=== PATIENT | male | born 1945 | race American Indian/Alaskan Native ===

== ENCOUNTER 2020-01-23 22:07 | Emergency (ER) | payer MEDICARE ==
[2020-01-23 23:36] LABS: Alanine Aminotransferase 16 units/L (7-56); Albumin 3.8 g/dL (3.9-5); BUN/Creatinine Ratio 16; Blood Urea Nitrogen 21 mg/dL (9-20); Calcium 10.9 mg/dL (8.4-10.2); Hemolysis Index 12; INR 0.96 (0.87-1.13)
[2020-01-23 23:37] LABS: Partial Thromboplastin Time 26.5 Sec. (24.2-36.6)
[2020-01-23 23:43] LABS: Hematocrit 44.8 % (35.5-45.6); Mean Corpuscular HGB Conc 32 % (32-34); Mean Corpuscular Volume 87 fl (84-94); Platelet Count 187 K/mm3 (140-440); Red Blood Count 5.12 M/mm3 (3.65-5.03); Red Cell Distribution Width 15.4 % (13.2-15.2)
[2020-01-23 23:48] LABS: Hemoglobin 14.1 gm/dl (11.8-15.2); Lymphocytes % (Auto) 25.3 % (13.4-35.0)
[2020-01-23 23:49] LABS: Basophils % (Auto) 0.6 % (0.0-1.8); Eosinophils % (Auto) 1.5 % (0.0-4.3); Monocytes % (Auto) 8.9 % (0.0-7.3)
[2020-01-23 23:50] LABS: Eosinophils # (Auto) 0.1 K/mm3 (0.0-0.4); Lymphocytes # (Auto) 1.8 K/mm3 (1.2-5.4); Monocytes # (Auto) 0.6 K/mm3 (0.0-0.8)
[2020-01-24 01:34] VITALS: BP 145/70
== END 2020-01-24 01:37 | disposition other institution (70) ==
LOC: ED 22:07
DX: I61.5 Nontraumatic intracerebral hemorrhage, intraventricular (principal); R41.82 Altered mental status, unspecified; R53.1 Weakness; I10 Essential (primary) hypertension; R56.9 Unspecified convulsions; Z86.73 Personal history of transient ischemic attack (TIA), and cerebral infarction without residual deficits; Z87.442 Personal history of urinary calculi; Z98.890 Other specified postprocedural states; Z87.891 Personal history of nicotine dependence; Z79.899 Other long term (current) drug therapy
CPT/HCPCS: 36415; 70450; 71045; 80053; 82140; 82550; 84443; 84484; 85025; 85610; 85730; 93005; 96374; 99291; J0360; 80320; G0480

== ENCOUNTER 2021-09-04 21:48 | Emergency (ER) | payer MEDICARE ==
[2021-09-04] MEDS ORDERED: levETIRAcetam 1000 MG/NS 0.75% 1,000 MG/100 ML BAG IV ONE (22:23)
--- NOTE | 2021-09-04 22:29 | Emergency Department Report ---
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 Patient also had history of seizure on Keppra. Patient brought to the emergency room via EMS from home for evaluation after single episode of generalized tonic-clonic seizure witnessed by his while having dinner tonight. Patient was postictal upon arrival to the scene by EMS. Patient now is awake alert but he is not oriented to time place and person however EMS reported that his stated that this is his baseline. MD Complaint: seizure Description of Episode: loss of consciousness, tonic-clonic movement, post-event confusion Witnessed:: Yes Trauma: No Seizure History: known seizure disorder Place: home Possible Precipitating Event: none Associated Symptoms: denies other symptoms Treatments Prior to Arrival: none - Related Data Home Medications Medication Instructions Recorded Confirmed Last Taken Brimonidine 0.15% [Alphagan P 1 drops OU BID 02/25/18 02/25/18 Unknown 0.15%] Donepezil HCl 5 mg PO QPM 02/25/18 02/25/18 Unknown Previous Rx's Medication Instructions Recorded Last Taken Type Clopidogrel [Plavix] 75 mg PO QDAY #30 tablet 10/24/15 Unknown Rx Dorzolamide/Timolol(Nf) 2-0.5% 1 drops OU BID bottle 10/24/15 Unknown Rx [Cosopt (Nf)] Latanoprost 0.005% 1 drops OU QPM bottle 10/24/15 Unknown Rx Aspirin [Aspirin BABY CHEW TAB] 81 mg PO QDAY #30 tab.chew 02/28/18 Unknown Rx AtorvaSTATin [Lipitor] 40 mg PO QHS #30 tablet 02/28/18 Unknown Rx Allergies Allergy/AdvReac Type Severity Reaction Status Date / Time No Known Allergies Allergy Unverified 10/13/15 14:44 ED Review of Systems ROS: Stated complaint: SEIZURE Other details as noted in HPI Comment: All other systems reviewed and negative Constitutional: denies: chills, fever Respiratory: denies: cough, shortness of breath, SOB with exertion, SOB at rest Cardiovascular: denies: chest pain, palpitations Gastrointestinal: denies: abdominal pain, nausea, vomiting, diarrhea, constipation, hematemesis Musculoskeletal: denies: back pain Neurological: denies: headache ED Past Medical Hx - Past Medical History Hx Hypertension: Yes Hx CVA: Yes Hx Heart Attack/AMI: No Hx Congestive Heart Failure: No Hx Diabetes: No Hx Deep Vein Thrombosis: No Hx Pulmonary Embolism: No Hx Liver Disease: No Hx Renal Disease: No Hx Sickle Cell Disease: No Hx Arthritis: No Hx Seizures: Yes Hx Kidney Stones: Yes Hx Asthma: No Hx COPD: No Hx Tuberculosis: No Hx Dementia: No Hx HIV: No Additional medical history: multiple TIAs - Surgical History Hx Coronary Stent: No Hx Open Heart Surgery: No Hx Pacemaker: No Hx Internal Defibrillator: No Hx Cholecystectomy: No Hx Appendectomy: No Hx Breast Surgery: No Additional Surgical History: aneurysm clip - Social History Smoking Status: Former Smoker Substance Use Type: None - Medications Home Medications: Home Medications Medication Instructions Recorded Confirmed Last Taken Type Clopidogrel [Plavix] 75 mg PO QDAY #30 tablet 10/24/15 02/25/18 Unknown Rx Dorzolamide/Timolol(Nf) 2-0.5% 1 drops OU BID bottle 10/24/15 02/25/18 Unknown Rx [Cosopt (Nf)] Latanoprost 0.005% 1 drops OU QPM bottle 10/24/15 02/25/18 Unknown Rx Brimonidine 0.15% [Alphagan P 1 drops OU BID 02/25/18 02/25/18 Unknown History 0.15%] Donepezil HCl 5 mg PO QPM 02/25/18 02/25/18 Unknown History Aspirin [Aspirin BABY CHEW TAB] 81 mg PO QDAY #30 tab.chew 02/28/18 Unknown Rx AtorvaSTATin [Lipitor] 40 mg PO QHS #30 tablet 02/28/18 Unknown Rx ED Physical Exam - General General appearance: alert, in no apparent distress - Head Head exam: Present: atraumatic, normocephalic, normal inspection - Eye Eye exam: Present: normal appearance - ENT ENT exam: Present: normal exam, normal orophraynx, mucous membranes moist - Neck Neck exam: Present: normal inspection, full ROM. Absent: tenderness, meningismus - Respiratory Respiratory exam: Present: normal lung sounds bilaterally - Cardiovascular Cardiovascular Exam: Present: regular rate, normal rhythm, normal heart sounds - GI/Abdominal GI/Abdominal exam: Present: soft, normal bowel sounds. Absent: distended, tenderness, guarding, rebound, rigid, organomegaly, mass, bruit, pulsatile mass, hernia - Extremities Exam Extremities exam: Present: normal inspection, full ROM, normal capillary refill. Absent: tenderness - Back Exam Back exam: Present: normal inspection, full ROM. Absent: tenderness, CVA tenderness (R), CVA tenderness (L) - Neurological Exam Neurological exam: Present: alert, altered - Psychiatric Psychiatric exam: Present: normal mood - Skin Skin exam: Present: warm, intact, normal color ED Course Vital Signs 09/04/21 09/04/21 23:35 23:40 Temperature 97.4 F L Pulse Rate 72 Respiratory 12 18 Rate O2 Sat by Pulse 98 96 Oximetry ED Medical Decision Making - Lab Data Result diagrams: 09/04/21 23:10 09/04/21 23:10 - EKG Data -: EKG Interpreted by Md EKG shows normal: sinus rhythm Rate: normal - EKG Data Interpretation: no acute changes - Radiology Data Radiology results: report reviewed - Medical Decision Making Patient is 76-year-old male with 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 Patient also had history of seizure on Keppra. Patient brought to the emergency room via EMS from home for evaluation after single episode of generalized tonic-clonic seizure witnessed by his while having dinner tonight. Patient was postictal upon arrival to the scene by EMS. Patient now is awake alert but he is not oriented to time place and person however EMS reported that his stated that this is his baseline. Patient remained stable in the ER with stable vital signs. No seizure activity observed. Patient received Keppra 1 g IV. Labs reviewed and is unremarkable except for slightly elevated sodium level of 148. Patient stated that he is feeling much better and he wants to go home. CT brain is negative for acute finding. Patient is currently on Keppra and advised to follow-up with his neurologist in the next 2 to 3 days and to return to the ER if he develop any new symptoms. Critical care attestation.: If time is entered above; I have spent that time in minutes in the direct care of this critically ill patient, excluding procedure time. ED Disposition Clinical Impression: Seizure Disposition: HOME / SELF CARE / HOMELESS Is pt being admited?: No Condition: Stable Instructions: Seizure, Adult Referrals: PRIMARY CARE, [Primary Care Provider] - 3-5 Days
--- NOTE | 2021-09-04 23:23 | Cat Scan Report ---
CT HEAD WITHOUT CONTRAST INDICATION / CLINICAL INFORMATION: Seizure. TECHNIQUE: All CT scans at this location are performed using CT dose reduction for ALARA by means of automated exposure control. COMPARISON: CT dated 01/23/20, 02/24/18, 02/03/12 FINDINGS: HEMORRHAGE: None. Interval resolution of recently noted intraventricular hemorrhage. EXTRA-AXIAL SPACES: Moderately prominent likely related to cortical atrophy. Hyperdense lesion along the inner table of the right frontal bone measures 4 x 10 mm and is unchanged since 2018. VENTRICULAR SYSTEM: Mildly dilated with right parietal ventriculostomy catheter terminating in the fr ontal horn of the left lateral ventricle. 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 No acut e territorial infarct. Lacunar infarct in the right periventricular white matter is unchanged. Aneury sm clips in the left parasellar region are unchanged. MIDLINE SHIFT / HERNIATION: None. CEREBELLUM / BRAINSTEM: No significant abnormality. ORBITS: Normal as visualized. SOFT TISSUES: No significant abnormality. SKULL: Left frontal craniotomy findings are unchanged. PARANASAL SINUSES / MASTOID AIR CELLS: Normal as visualized. ADDITIONAL FINDINGS: None. IMPRESSION: 1. No acute intracranial abnormality. 2. Stable appearance of right parietal ventriculostomy catheter with tip in the left frontal horn. 3. Small hyperdense lesion along the inner table of the right frontal bone could represent small meni ngioma. No change since 2018. Signer Name: Duke Gayle MD Signed: 09/04/2021 11:18 PM Workstation Name: [id number]
[2021-09-05 00:04] LABS: Basophils % (Auto) 0.1 % (0.0-1.8); Eosinophils % (Auto) 0.1 % (0.0-4.3); Lymphocytes # (Auto) 0.7 K/mm3 (1.2-5.4); Mean Corpuscular HGB Conc 31 % (32-34); Mean Corpuscular Volume 88 fl (84-94); Monocytes # (Auto) 0.6 K/mm3 (0.0-0.8); Monocytes % (Auto) 5.4 % (0.0-7.3); Platelet Count 162 K/mm3 (140-440); Red Blood Count 5.24 M/mm3 (3.65-5.03); Red Cell Distribution Width 15.5 % (13.2-15.2)
[2021-09-05 01:09] LABS: Alanine Aminotransferase 13 units/L (7-56); Albumin 3.8 g/dL (3.9-5); BUN/Creatinine Ratio 13; Blood Urea Nitrogen 12 mg/dL (9-20); Calcium 10.5 mg/dL (8.4-10.2); Hemolysis Index 10
[2021-09-05 01:10] LABS: Bilirubin,Direct < 0.2 mg/dL (0-0.2)
[2021-09-05 07:48] VITALS: BP 155/66
== END 2021-09-05 08:15 | disposition home or self-care (01) ==
LOC: ED 21:48
DX: G40.909 Epilepsy, unspecified, not intractable, without status epilepticus (principal); I10 Essential (primary) hypertension; Z87.891 Personal history of nicotine dependence
CPT/HCPCS: 36415; 70450; 80048; 80076; 85025; 93005; 96365; 99284; J1953